=== PATIENT | female | born 1960 | race Caucasian/White ===

== ENCOUNTER 2017-10-08 12:11 | Emergency (ER) | END 2017-10-08 17:37 | disposition home or self-care (01) ==

== ENCOUNTER 2017-11-24 20:36 | Emergency (ER) | END 2017-11-24 23:17 | disposition home or self-care (01) ==

== ENCOUNTER 2018-04-07 16:29 | Emergency (ER) | END 2018-04-07 18:45 | disposition home or self-care (01) ==

== ENCOUNTER 2019-03-30 18:46 | Emergency (ER) | payer OTHER ==
[~2019-03-30] VITALS: Ht 167.6 cm; Wt 69.6 kg
[~2019-03-30 18:46] MED LIST: CARB100T2 PO; LIDO20SO19 PO
[2019-03-30 18:52] VITALS: Ht 167.6 cm; Wt 69.6 kg
[2019-03-30] MEDS ORDERED: LIDOCAINE/MYLANTA 40 ML BTL PO STA ×2 (19:24→21:17)
[2019-03-30] MEDS ORDERED: BELLADONNA/PHENOBARBITAL TAB PO STA (19:24)
[2019-03-30] MEDS ORDERED: LIDOCAINE 2% VISC 15 ML CUP PO ONE (21:30)
--- NOTE | 2019-03-30 22:28 | ERD ---
ER Documentation Chief Complaint Chief Complaint LUQ abd sharp pain,ST HPI This is a 58-year-old female who is here with reflux. The patient has a more than 15-year history of reflux, she says she is on omeprazole 40 mg twice daily. She says that she is having some terrible reflux the past 2 to 3 days with lots exacerbations and she has a very sour taste in her mouth. She says she is having some sharp pain when she was swallowing in the upper throat region the past 3 days but is better now. No chest pain or shortness of breath or jaw pain or diaphoresis. She says this is her typical reflux she is had in the past. She says she watches her diet. She says that when she eats food it makes things better for a while and then it comes back again. She says she is very used to the symptoms and is typical for her ROS All systems reviewed and are negative except as per history of present illness. Medications Home Meds Active Scripts Lidocaine (Lidocaine Viscous) 100 Ml Soln, 15 ML PO BEFORE MEALS, #150 ML Prov:ALLI DICKEY DO 03/30/19 Carbamazepine* (Carbamazepine*) 100 Mg Tab.chew, 100 MG PO BID, #30 TAB.CHEW Initial: 200 mg/day on day 1 divided q12hr Increase by up to 200 mg/day in increments of 100 mg q12hr, to dose range of 400-800 mg/day divided twice daily; not to exceed 1200 mg/day Prov:TUNDE HALEY PA-C 04/07/18 Allergies Allergies: Coded Allergies: No Known Allergy (Unverified , 10/08/17) PMhx/Soc History of Surgery: Yes (back surgery, ectopic ) Anesthesia Reaction: No Hx Neurological Disorder: No Hx Respiratory Disorders: No Hx Cardiac Disorders: No Hx Psychiatric Problems: No Hx Miscellaneous Medical Probl: Yes Hx Alcohol Use: No Hx Substance Use: No Hx Tobacco Use: Yes Smoking Status: Current every day smoker FmHx Family History: No coronary disease Physical Exam Vitals Vital Signs Date Temp Pulse Resp B/P (MAP) Pulse Ox O2 O2 Flow FiO2 Time Delivery Rate 03/30/19 97.9 83 18 117/69 97 18:52 (85) Physical Exam Const: Well-developed, well-nourished Head: Atraumatic, normocephalic Eyes: Normal Conjunctiva, PERRLA, EOMI, normal sclera, no nystagmus ENT: Normal External Ears, Nose and Mouth, moist mucus membranes. Neck: Full range of motion. No meningismus, no lymphadenopathy. Resp: Clear to auscultation bilaterally, no wheezing, rhonchi, rales Cardio: Regular rate and rhythm, no murmurs, S1 S2 present Abd: Soft, non tender x 4, non distended. Normal bowel sounds, no guarding or rebound, no pulsitile abdominal masses or bruits Skin: No petechiae or rashes, no ecchymosis , no maculopapular rash Back: No midline or flank tenderness Ext: No cyanosis, or edema, FROM x 4, normal inspection, neurovascularly intact x 4 Neur: Awake and alert, STR 5/5 x 4, sensation intact x 4, no focal findings, cerebellum intact Psych: Normal Mood and Affect Results 24 hrs Current Medications Medications Dose Sig/Vashti Start Time Status Last (Trade) Ordered Route PRN Stop Time Admin Dose Reason Admin 40 ml ONCE STAT 03/30/19 DC 03/30/19 Miscellaneous PO 19:24 19:30 Medication 03/30/19 19:25 (Gi Cocktail (2)) Belladonna/ 2 tab ONCE STAT 03/30/19 DC 03/30/19 Phenobarbital PO 19:24 19:30 () 03/30/19 19:25 40 ml ONCE STAT 03/30/19 DC 03/30/19 Miscellaneous PO 21:17 21:45 Medication 03/30/19 21:18 (Gi Cocktail (2)) Lidocaine 15 ml ONCE ONCE 03/30/19 DC 03/30/19 (Xylocaine PO 21:30 21:45 (Viscous)) 03/30/19 21:31 Procedures/MDM Patient received a GI cocktail x2 after that she says she feels much better. Discussed at length dietary care and to follow-up with GI I will give her a referral for an EGD. Discussed some [id number] care as well. Patient says this is typical for reflux and feels exactly the same as always said. I do not flights like this is a cardiac work-up at all due to her history and consistency with the past 15+ years of GERD Departure Diagnosis: Primary Impression: GERD (gastroesophageal reflux disease) Esophagitis presence: esophagitis presence not specified Qualified Codes: K21.9 - Gastro-esophageal reflux disease without esophagitis Condition: Stable Patient Instructions: Gerd (Adult) Referrals: EILEEN TSE MD, APOSTOLOS A. DO Mar 30, 2019 22:28
[2019-03-30 22:41] VITALS: BP 122/76; PULSE 79; RESP 16
== END 2019-03-30 22:41 | disposition home or self-care (01) ==
LOC: E/R 18:46
DX: K21.9 Gastro-esophageal reflux disease without esophagitis (principal)
CPT/HCPCS: Z7502; Z7610; 99283